=== PATIENT | female | born 2005 | race Caucasian/White ===

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

== ENCOUNTER 2025-05-09 17:10 | Emergency (ER) | payer MEDICAID, SELFPAY ==
--- NOTE | ~2025-05-09 | XR_ITS ---
CLINICAL HISTORY: chest pain 2 view chest x-ray Comparison: None provided Findings: Heart size is normal. No consolidation, pleural effusion or pneumothorax. No acute fracture. IMPRESSION: 1. No acute findings. This document has been electronically signed by: Teena Montiel MD on 05/09/2025 17:48:21
--- NOTE | 2025-05-09 17:13 | ECG_ITS ---
Test Reason : CHEST PAIN Blood Pressure : */* mmHG Vent. Rate : 71 BPM Atrial Rate : 71 BPM P-R Int : 136 ms QRS Dur : 78 ms QT Int : 378 ms P-R-T Axes : 73 83 58 degrees QTcB Int : 410 ms Normal sinus rhythm Normal ECG No previous ECGs available Referred By: Kacy Guzman Electronically Signed By: HOMAR DUARTE
[2025-05-09 17:19] VITALS: BP 118/69; PULSE 94; RESP 16; TEMP 36.8; O2SAT 98; BMI 16.9
--- NOTE | 2025-05-09 17:20 | ED.GENADULT ---
HPI - General Adult General Chief complaint: Chest Pain Stated complaint: cp Time Seen by Provider: 05/09/25 20:42 Source: patient Mode of arrival: ambulatory History of Present Illness ED Provider: HPI narrative: Patient's history of anxiety complaining of bilateral chest pain for last 1 week off and on no shortness a breath no cough no injury Related Data Home Medications ?Medication ?Instructions ?Recorded ?Confirmed aripiprazole 15 mg tablet 15 mg PO BEDTIME 06/10/21 12/28/21 clonidine HCl 0.1 mg tablet 0.1 mg PO BEDTIME 06/10/21 12/28/21 lithium carbonate 300 mg 300 mg PO BEDTIME 06/10/21 12/28/21 tablet,extended release melatonin 5 mg tablet 10 mg PO BEDTIME 06/10/21 12/28/21 Allergies Allergy/AdvReac Type Severity Reaction Status Date / Time No Known Allergies (No Known Allergy Verified 05/09/25 17:21 Allergies*) Review of Systems Review of Systems: Yes all other systems are reviewed and are negative PMFSH Past Medical History Medical History Anxiety Depression Social History Social History Alcohol intake: never Patient Tobacco Use Status: Never used Tobacco Substance Use Type: Marijuana Advance Directives: No Advance Directives Information Provided: No Do you have a plan to hurt others: No Plan Physical Exam ED Vital Signs: BMI result Body Mass Index 16.9 Appearance: Alert. Oriented X3. No acute distress. Eyes: no pallor or icterus ENT: Pharynx normal Oral Mucosa moist tympanic membrane intact no erythema, Neck: Normal inspection. Neck supple. CVS: Normal heart rate and rhythm. Pulses normal. Diffuse chest wall tenderness Respiratory: No respiratory distress. Equal air entry bilateral, no wheezing/rales/rhonchi Abd: soft, not tender Skin: Skin warm and dry. Normal skin color. Normal skin turgor. Extremities: No lower extremity edema, no calf tenderness Neuro: Oriented X 3. Course Course Course Narrative: This is a rapid medical exam performed by Rosamaria Guzman NP: Additional HPI, ROS, PE not included below will be deferred to primary provider. Patient is a 19-year-old female presenting with midsternal and L sided chest pain x 1 month. Under left breast on left side. Associated occasional dyspnea. Plan: EKG, labs, CXR Medications Administered Discontinued Medications Generic Name Dose Route Start Last Admin Trade Name Ava PRN Reason Stop Dose Admin Ibuprofen 400 mg 05/09/25 20:47 05/09/25 20:52 Ibuprofen 400 Mg Tablet PO 05/09/25 20:48 400 mg ONCE ONE Administration Medical Decision Making Medical Decision Making [facility] Narrative: Patient has atypical chronic chest pain with anxiety likely musculoskeletal pain discharge patient home on ibuprofen as needed Lab Data [facility] Lab Attestation statement: I reviewed the patient's lab results. 05/09/25 17:40 05/09/25 17:40 Labs: Lab Results 05/09/25 Range/Units 17:40 WBC 7.0 (4.8-10.8) X10*3/uL RBC 4.48 (4.20-5.50) X10*6/uL Hgb 12.0 (12.0-16.0) g/dl Hct 36.9 L (37.0-47.0) % MCV 82.4 (80.0-98.0) fL MCH 26.8 L (27.0-33.0) pg MCHC 32.5 (31.0-35.0) g/dl RDW 14.3 (11.0-16.0) % Plt Count 223 (160-400) X10*3/uL MPV 9.2 L (9.4-12.3) fL Immature Gran % (Auto) 0.1 (0.0-0.4) % Neut % (Auto) 47.4 (45-73) % Lymph % (Auto) 43.6 H (20-40) % [place] % (Auto) 6.0 (2-11) % Eos % (Auto) 2.2 (0-4) % Baso % (Auto) 0.7 (0-2) % Lymph # (Auto) 3.0 (1.2-4.9) X10*3/uL [place] # (Auto) 0.4 (0.1-1.2) X10*3/uL Eos # (Auto) 0.2 (0.0-0.4) X10*3/uL Baso # (Auto) 0.1 (0.0-0.2) X10*3/uL Abs Immat Gran (auto) 0.01 (0.00-0.03) X10*3/uL Absolute Neuts (auto) 3.3 (2.0-8.3) x10*3/uL Absolute Nucleated RBC 0.000 (0.0-0.012) X10*3/uL Nucleated RBC % (auto) 0.0 (0.0-0.2) /100WBC Sodium 138 (135-145) mmol/L Potassium 3.4 (3.3-5.1) mmol/L Chloride 108 (96-108) mmol/L Carbon Dioxide 24 (22-29) mmol/L Anion Gap 9 L (12-20) BUN 12 (9-16) mg/dL Creatinine 1.02 (0.5-1.4) mg/dL Estim Creat Clear Calc 64.7 Estimated GFR > 60 Random Glucose 119 H (60-115) mg/dL Calcium 8.9 (8.4-10.2) mg/dL Total Bilirubin 1.0 (0.0-1.0) mg/dL AST 23 (5-31) U/L ALT 15 (0-31) U/L Alkaline Phosphatase 80 (39-117) U/L Troponin I High Sens < 2.7 (<3.5-17.0) ng/L Total Protein 7.6 (6.5-8.0) g/dL Albumin 4.7 (3.5-5.0) g/dL Beta HCG, Quant < 2 mIU/mL Independent Interpretation I performed an independent interpretation of an: EKG Interpretation: Normal sinus rhythm heart rate 71 beats per minute normal interval normal axis no acute STT wave changes no acute ischemia Discharge Plan Discharge Clinical Impression: Atypical chest pain Patient Disposition: Home, Self-Care Instructions: Chest Wall Pain (ED) Additional Instructions: Your chest pain is not from the heart likely musculoskeletal take Tylenol /ibuprofen for pain as needed Prescriptions: No Action clonidine HCl 0.1 mg tablet 0.1 mg PO BEDTIME Patient Comments: PER PATIENT'S MOTHER, ONLY TAKES AT NIGHT lithium carbonate 300 mg tablet extended release 300 mg PO BEDTIME Patient Comments: PER PATIENT'S MOTHER, ONLY TAKES AT NIGHT aripiprazole 15 mg tablet 15 mg PO BEDTIME melatonin 5 mg tablet 10 mg PO BEDTIME Patient Comments: PER PATIENT'S MOTHER, ONLY TAKES AT NIGHT Stand Alone Forms: Work/School Release Interventions: ED Discharge Assessment Last Done: 05/09/25 20:57 Discharge Date/Time: 05/09/25 20:58 Print Language: Malaysian
[2025-05-09 17:44] LABS: MANUAL DIFF FLAG NO
[2025-05-09 17:45] LABS: Hematocrit 36.9 % (37.0-47.0); Hemoglobin 12.0 g/dl (12.0-16.0); Imm Gran Abs Auto 0.01 X10*3/uL (0.00-0.03); Imm Gran Pct Auto 0.1 % (0.0-0.4); Lymphocytes Absolute Auto 3.0 X10*3/uL (1.2-4.9); Mean Corpuscular HGB Conc 32.5 g/dl (31.0-35.0); Mean Corpuscular Hemoglobin 26.8 pg (27.0-33.0); Mean Corpuscular Volume 82.4 fL (80.0-98.0); NRBC Abs Auto 0.000 X10*3/uL (0.0-0.012); NRBC Pct Auto 0.0 /100WBC (0.0-0.2); Platelet Count 223 X10*3/uL (160-400); Red Blood Count 4.48 X10*6/uL (4.20-5.50); White Blood Count 7.0 X10*3/uL (4.8-10.8)
[2025-05-09 18:11] LABS: Alanine Aminotransferase 15 U/L (0-31); Albumin Level 4.7 g/dL (3.5-5.0); Alkaline Phosphatase 80 U/L (39-117); Anion Gap 9 (12-20); Aspartate Amino Transferase 23 U/L (5-31); Blood Urea Nitrogen 12 mg/dL (9-16); Calcium 8.9 mg/dL (8.4-10.2); Carbon Dioxide 24 mmol/L (22-29); Chloride 108 mmol/L (96-108); Creatinine Clr Calc Pharmacy 64.7; Estimated Glomerular Filt Rate > 60; Potassium 3.4 mmol/L (3.3-5.1); Sodium 138 mmol/L (135-145); Total Protein 7.6 g/dL (6.5-8.0)
[2025-05-09 18:14] LABS: Troponin-I High Sensitivity < 2.7 ng/L (<3.5-17.0)
[2025-05-09 19:40] VITALS: BP 98/58; PULSE 69; RESP 16; TEMP 36.6; O2SAT 99
[2025-05-09 20:00] VITALS: BP 99/59; PULSE 66; RESP 18; TEMP 36.8; O2SAT 100
[2025-05-09 20:57] VITALS: BP 99/59; PULSE 66; RESP 18; TEMP 36.8; O2SAT 100
== END 2025-05-09 20:58 | disposition home or self-care (01) ==
PROVIDERS: Registered Nurse Emergency; Emergency Provider Internal Medicine
DX: R07.89 Other chest pain (principal); F41.9 Anxiety disorder, unspecified; M79.10 Myalgia, unspecified site; Z79.899 Other long term (current) drug therapy
CPT/HCPCS: 36415; 71046; 80053; 84484; 84702; 85025; 93005; 99283; 99285

== ENCOUNTER → 2025-05-09 17:13 | Outpatient (BNV) | payer MEDICAID, SELFPAY | PROVIDERS: Emergency Provider Internal Medicine; Visit Provider Internal Medicine | DX: R07.9 Chest pain, unspecified (principal) | CPT/HCPCS: 93010 ==

== ENCOUNTER → 2025-05-09 17:22 | Outpatient (BNV) | payer MEDICAID, SELFPAY | PROVIDERS: Visit Provider Specialist | DX: R07.89 Other chest pain (principal) | CPT/HCPCS: 71046 ==

== ENCOUNTER 2025-06-26 11:24 | Outpatient (REF) | payer MEDICAID, SELFPAY ==
[2025-06-26 13:20] LABS: MANUAL DIFF FLAG NO
[2025-06-26 13:27] LABS: Hematocrit 36.6 % (37.0-47.0); Hemoglobin 11.7 g/dl (12.0-16.0); Imm Gran Abs Auto 0.01 X10*3/uL (0.00-0.03); Imm Gran Pct Auto 0.1 % (0.0-0.4); Lymphocytes Absolute Auto 2.3 X10*3/uL (1.2-4.9); Mean Corpuscular HGB Conc 32.0 g/dl (31.0-35.0); Mean Corpuscular Hemoglobin 26.3 pg (27.0-33.0); Mean Corpuscular Volume 82.2 fL (80.0-98.0); NRBC Abs Auto 0.000 X10*3/uL (0.0-0.012); NRBC Pct Auto 0.0 /100WBC (0.0-0.2); Platelet Count 229 X10*3/uL (160-400); Red Blood Count 4.45 X10*6/uL (4.20-5.50); White Blood Count 7.0 X10*3/uL (4.8-10.8)
[2025-06-26 14:25] LABS: Alanine Aminotransferase 16 U/L (0-31); Albumin Level 4.6 g/dL (3.5-5.0); Alkaline Phosphatase 66 U/L (39-117); Anion Gap 12 (12-20); Aspartate Amino Transferase 26 U/L (5-31); Blood Urea Nitrogen 10 mg/dL (9-16); Calcium 8.9 mg/dL (8.4-10.2); Carbon Dioxide 24 mmol/L (22-29); Chloride 108 mmol/L (96-108); Cholesterol 161 mg/dL (<200); Estimated Glomerular Filt Rate > 60; HDL Cholesterol 60 mg/dL (>40); Potassium 3.7 mmol/L (3.3-5.1); Sodium 140 mmol/L (135-145); Total Protein 7.3 g/dL (6.5-8.0); Triglycerides 49 mg/dL (<150)
== END 2025-06-26 11:25 | disposition home or self-care (01) ==
LOC: HO.HHCL 11:24
PROVIDERS: Visit Provider Registered Nurse Psychiatric/Mental Health
DX: Z79.899 Other long term (current) drug therapy (principal)
CPT/HCPCS: 36415; 80053; 80061; 82248; 84443; 85025

== ENCOUNTER 2025-06-27 14:59 | Outpatient (REF) | payer MEDICAID, SELFPAY ==
--- OUTSIDE RECORDS SUMMARY | 2025-06-27 14:15 | XMS_ITS | Encounter Summary ---
Author Organization [employer] Address [address] [facility] [facility] 7[address] [place] [address] Care Team Providers Care Ripsaw Grader Name Role Phone Carmelita Lanza MD Primary Care Provider [phone] Encounter Details Date Type Department Care Team ([facility] st Contact Info) Description 06/27/2025 2:15 PM EDT Office Visit [facility] MED & PEDS [address] [place] [address] Carmelita Lanza MD [address] [place] [address] Excessive weight loss (Primary Dx); Mixed anxiety and depressive disorder Social History Tobacco Use Types Packs/Day Years [...] Sign Reading Time Taken Comments Blood Pressure 110/60 06/27/2025 2:18 PM EDT Pulse 82 06/27/2025 2:18 PM EDT Temperature 36.5 C (97.7 F) 06/27/2025 2:18 PM EDT Respiratory Rate 20 06/27/2025 2:18 PM EDT Oxygen Saturation 98% 06/27/2025 2:18 PM EDT Inhaled Oxygen Concentration - - Weight 44.5 kg (98 lb 3.2 oz) 06/27/2025 2:18 PM EDT Height 165.1 cm (5' 5 ) 06/27/2025 2:18 PM EDT Body Mass Index 16.34 06/27/2025 2:18 PM EDT documented in this encounter Progress Notes * Carmelita Lanza MD - 06/27/2025 2:15 PM EDT Subjective Patient ID: Rashida Espinosa is a 19 y.o. female who presents for weight loss. Patient is a 19-year-old female here for inability to gain weight. Patient has always been thinner and states parents and siblings are as well. Her previous weight at last visit was 105 pounds and today she is 98 pounds despite trying to have 3 meals a day and snacks. She is very busy between [employer] school and working at [employer] a lot. Admits to drinking 3-4 red bowls daily to keep up her energy level. Denies any red flag symptoms. She had blood work drawn yesterday by psych which were reviewed and were within normal limits except for a hemoglobin of 11.7. Review of Systems Constitutional: Positive for unexpected [...] The patient is not nervous/anxious. Objective BP 110/60 Pulse 82 Temp 97.7 ??F (36.5 ??C) (Oral) Resp 20 Ht 5' 5 (1.651 m) Wt 98 lb 3.2 oz (44.5 kg) SpO2 98% BMI 16.34 kg/m?? Physical Exam Constitutional: General: She is [...] Normal pulses. Heart sounds: Normal heart sounds. Pulmonary: Effort: Pulmonary effort is normal. No respiratory distress. Breath sounds: Normal breath sounds. Abdominal: Palpations: Abdomen is soft. Musculoskeletal: General: Normal range of motion. Cervical back: Normal range of motion. Lymphadenopathy: Cervical: No cervical adenopathy. Skin: General: Skin is warm. Capillary Refill: [...] for this visit: Excessive weight loss Comments: Patient is trying to gain weight by having 3 meals a day as well as snacks. Very busy with work andschool. Advised to stop drinking red bull as it worsens her anxiety and stimulates her metabolism even more. Prescription for boost shakes given today. Trial of Periactin as well given. Denies depression symptoms and sees therapist and psych provider. Labs from yesterday reviewed and within normal limits. Will add a chest x-ray, sed rate and CRP as part of the workup for underweight. Follow-up with me given. She also has negative STD screening done recently. Orders: - C-reactive Protein; Future - Vitamin B12/Folate, Serum Panel; Future - Sed Rate by Modified Westergren; Future - Nutritional Supplements (Boost Original) liquid; Take 1 Bottle by mouth 2 times daily. - XR Chest 2 Views; Future Mixed anxiety and depressive disorder Comments: Patient sees therapist as well as psych provider through [facility]. Mood seems stable. Drinking lots of red bull daily. Advised to taper and stop eventually as it increases anxiety and probably increases her metabolism which worsens her weight loss. Advised to switch to another healthier drink or coffee. Other orders - cyproheptadine (Periactin) 4 MG tablet; Take 1 tablet (4 mg) by mouth at bedtime. documented in this encounter Plan of Treatment Upcoming Encounters Date Type Department Care Team ([facility] st Contact Info) Description 08/27/2025 9:45 AM EST Office Visit [facility] MED & PEDS [address] [place] [address] Carmelita Lanza MD [address] [place] [address] Scheduled Orders Name Type Priority Associated Diagnoses Orde r Schedule C-reactive Protein Lab Routine Excessive weight loss Expected: 06/27/2025 (Approximate), Expires: 06/27/2026 Vitamin B12/Folate, Serum Panel Lab Routine Excessive weight loss Expected: 06/27/2025, Expires: 06/27/2026 Sed Rate by Modified Westergren Lab Routine Excessive weight loss Expected: 06/27/2025, Expires: 06/27/2026 XR Chest 2 Views Imaging Routine Excessive weight loss Expected: 06/27/2025, Expires: 06/27/2026 documented as of this encounter Visit Diagnoses Diagnosis Excessive weight loss- Primary Mixed anxiety and depressive disorder Dysthymic disorder documented in this encounter Additional Health Concerns Assessment Noted Time PHQ-9 Depression Total Score: 6 12/11/19 25 9:21 AM EST documented as of this encounter Care Teams Ripsaw Grader Relationship Specialty Start Date End Date Carmelita Lanza MD [address] [place] [address] PCP - General Internal Medicine 12/20/23 Viv Gunderson Hi TeacherFront Window Cashier 10/11/24 documented as of this encounter
--- OUTSIDE RECORDS SUMMARY | 2025-06-27 16:04 | XMS_ITS | Encounter Summary ---
Author Organization [employer] Address [address] [place] [address] [address] [place] [address] Care Team Providers Care Underwriting Director Name Role Phone Carmelita Lanza MD Primary Care Provider [phone] Reason for Visit * Reason Onset Date Comments rs cancelled appt 02/20/2025 Encounter Details Date Type Department Care Team ([facility] st Contact Info) Description 02/20/2025 Telephone [facility] ADULT DENTAL [address] [place], [place] [phone] Giovanni Sun [address] [place] [address] rs cancelled appt Social History Tobacco Use Types Packs/Day Years [...] AM EDT documented as of this encounter Miscellaneous Notes * Telephone Encounter - Delores Brunner - 02/20/2025 12:20 PM EDT Patient would like to rescheduled cancelled appt on 01/23. It was cancelled a day prior to. Please reach out to patient for rescheduling DR documented in this encounter Plan of Treatment Upcoming Encounters Date Type Department Care Team (Late st Contact Info) Description 08/27/2025 9:45 AM EST Office Visit [facility] MED & PEDS [address] [place] [address] Carmelita Lanza MD [address] [place] [address] documented as of this encounter Visit Diagnoses Not on filedocumented in this encounter Additional Health Concerns Assessment Noted Time PHQ-9 Depression Total Score: 6 12/11/19 25 9:21 AM EST documented as of this encounter Care Teams Underwriting Director Relationship Specialty Start Date End Date Carmelita Lanza MD [address] [place] [address] PCP - General Internal Medicine 12/20/23 Viv Gunderson Dynamo TenderTruck Car And Bus Cleaner 10/11/24 documented as of this encounter
--- OUTSIDE RECORDS SUMMARY | 2025-06-27 16:04 | XMS_ITS | Encounter Summary ---
Author Organization [employer] Address [address] [place] [address] 7t [place] [address] Care Team Providers Care Warehouse Supervisor 3Rd Shift Name Role Phone Carmelita Lanza MD Primary Care Provider [phone] Reason for Visit * Reason Onset Date Comments cx appt no insurance 01/22/2025 Encounter Details Date Type Department Care Team ([facility] st Contact Info) Description 01/22/2025 Telephone [facility] ADULT DENTAL [address] [place], [place] [phone] Giovanni Sun [address] [place] [address] cx appt no insurance Social History Tobacco Use Types Packs/Day Years [...] * Telephone Encounter - Delores Brunner - 01/22/2025 12:11 PM EDT Patient [employer] is inactive. Patient was offered to speak with Chrissie however patient was on the way to [employer] an opted to speak with MH office directly. Patiet informed to contact office when MH insurance is squared away for rescheduling pending availability DR documented in this encounter Plan of Treatment Upcoming Encounters Date Type Department Care Team ([facility] st Contact Info) Description 08/27/2025 9:45 AM EST Office Visit [facility] MED & PEDS [address] [place] [address] Carmelita Lanza MD [address] [place] [address] documented as of this encounter Visit Diagnoses Not on filedocumented in this encounter Additional Health Concerns Assessment Noted Time PHQ-9 Depression Total Score: 6 12/11/19 25 9:21 AM EST documented as of this encounter Care Teams Warehouse Supervisor 3Rd Shift Relationship Specialty Start Date End Date Carmelita Lanza MD [address] [place] [phone] PCP - General Internal Medicine 12/20/23 Viv Gunderson Brush StainerMedical Front Desk Coordinator 10/11/24 documented as of this encounter
--- OUTSIDE RECORDS SUMMARY | 2025-06-27 16:04 | XMS_ITS | Encounter Summary ---
Author Organization [employer] Address [address] [facility] 7t [place] [address] Care Team Providers Care Senior Editor Name Role Phone Carmelita Lanza MD Primary Care Provider [phone] Encounter Details Date Type Department Care Team (Late st Contact Info) Description 06/26/2025 Orders Only GENERIC EXTERNAL DATA DEPARTMENT Provider, Generic External Data Social History Tobacco Use Types Packs/Day Years [...] Upcoming Encounters Date Type Department Care Team ([facility] st Contact Info) Description 08/27/2025 9:45 AM EST Office Visit [facility] MED & PEDS [address] [place], [place] [phone] Carmelita Lanza MD [address] [place], [place] [phone] documented as of this encounter Procedures Procedure Name Priority Date/Time Associated Diagnosis Comments TSH W/REFLEX TO FT4 Routine 06/26/2025 1 1:35 AM EDT CBC WITH AUTO DIFFERENTIAL Routine 06/26/2025 11:35 AM EDT HEPATIC FUNCTION PANEL Routine 11:35 AM EDT LIPID PANEL, STANDARD Routine 06/26/2025 11:35 AM EDT COMPREHENSIVE METABOLIC PANEL Routine 06/26/2025 11:35 AM EDT documented in this encounter Results * TSH with Reflex to Free T4 (06/26/2025 11:35 AM EDT) TSH reflex Free T4 0.57 0.32 - 4.0 uIU/mL [facility] 06/26/2025 11:3 5 AM EDT 06/26/2025 1:21 PM EDT Generic External Data Provider LAB BLOOD ORDERAB LES Final Result Performing Organization Address [facility] Co de Phone Number [facility] [address] [place] [phone] * Lipid Panel, Standard (06/26/2025 11:35 AM EDT) Triglycerides 49 <150 mg/dL [facility] Comment:Desirable Triglyceri de: less than 90 mg/dLBorderline High Triglyceride: 90-129 mg/dLHigh Triglyceride: greater than 130 mg/dL Cholesterol 161 <200 mg/dL [facility] Comment:Desirable Cholestero l: less than 170 mg/dLBorderline High Cholesterol: 170-199 mg/dLHigh Cholesterol: greater than 200 mg/dL LDL Cholesterol Calculated 92 <100 mg/dL [facility] Comment:Desirable LDL: less than 110 mg/dLBorderline LDL: 110-129 mg/dLHigh LDL: greater than or equal to 130 mg/dL HDL Cholesterol 60 >40 mg/dL [facility] Comment:Desirable HDL: great er than 45 mg/dLBorderline HDL: 40-45 mg/dLLow HDL: less than 40 mg/dL Note: This HDL assay may give artificially low results in patients with liver disease. 06/26/2025 11:3 5 AM EDT 06/26/2025 1:21 PM EDT Generic External Data Provider LAB BLOOD ORDERAB LES Final Result Performing Organization Address [facility] Co de Phone Number [facility] [address] [place] [phone] * (ABNORMAL) Hepatic Function Panel (06/26/2025 11:35 AM EDT) Bilirubin, Direct 0.6(H) 0.0 - 0.5 mg/dL [facility] Comment:Slight Icterus. 06/26/2025 11:3 5 AM EDT 06/26/2025 1:21 PM EDT us Generic External Data Provider LAB BLOOD ORDERAB LES Final Result Performing Organization Address City/[facility]/ZIP Co de Phone Number [facility] [address] [place] [phone] * (ABNORMAL) Comprehensive Metabolic Panel (06/26/2025 11:35 AM EDT) Sodium 140 135 - 145 mmol/L [facility] Potassium 3.7 3.3 - 5.1 mmol/L [facility] Chloride 108 96 - 108 mmol/L [facility] Carbon Dioxide 24 22 - 29 mmol/L [facility] Anion Gap 12 12 - 20 [facility] Urea Nitrogen (BUN) 10 9 - 16 mg/dL [facility] Creatinine, Serum 0.89 0.5 - 1.4 mg/dL [facility] Estimated Glomerular Filt Rate >60 [facility] Comment:Chronic Kidney Disea se: Estimated GFR < 60 mL/min/1.85h1Ipowhk Kidney Disease: Estimated GFR < 15 mL/min/1.73m2 Glucose 71 60 - 115 mg/dL [facility] Calcium 8.9 8.4 - 10.2 mg/dL [facility] Bilirubin, Total 1.8(H) 0.0 - 1.0 mg/dL [facility] Comment:Slight Icterus. Aspartate Amino Transferase 26 5 - 31 U/L [facility] Alanine Aminotransferase 16 0 - 31 U/L [facility] Total Protein 7.3 6.5 - 8.0 g/dL [facility] Albumin Level 4.6 3.5 - 5.0 g/dL [facility] Alkaline Phosphatase 66 39 - 117 U/L [facility] 06/26/2025 11:3 5 AM EDT 06/26/2025 1:21 PM EDT us Generic External Data Provider LAB BLOOD ORDERAB LES Final Result Performing Organization Address City/[facility]/ZIP Co de Phone Number [facility] [address] [place] [phone] * (ABNORMAL) CBC auto differential (06/26/2025 11:35 AM EDT) White Blood Count 7.0 4.8 - 10.8 X10*3/uL [facility] Red Blood Count 4.45 4.20 - 5.50 X10*6/uL [facility] Hemoglobin 11.7(L) 12.0 - 16.0 g/dl [facility] Hematocrit 36.6(L) 37.0 - 47.0 % [facility] Mean Corpuscular Volume 82.2 80.0 - 98.0 fL [facility] Mean Corpuscular Hemoglobin 26.3(L) 27.0 - 33.0 pg [facility] Mean Corpuscular HGB Conc 32.0 31.0 - 35.0 g/dl [facility] Red Cell Distribution Width 14.6 11.0 - 16.0 % [facility] Platelet Count 229 160 - 400 X10*3/uL [facility] Mean Platelet Volume 10.4 9.4 - 12.3 fL [facility] Neutrophils Percent Auto 58.0 45 - 73 % [facility] Imm Gran Pct Auto 0.1 0.0 - 0.4 % [facility] Lymphocytes Percent Auto 32.8 20 - 40 % [facility] Monocytes Percent Auto 6.6 2 - 11 % [facility] Eosinophils Percent Auto 1.9 0 - 4 % [facility] Basophils Percent Auto 0.6 0 - 2 % [facility] NRBC Pct Auto 0.0 0.0 - 0.2 /100WBC [facility] Neutrophils Absolute Auto 4.0 2.0 - 8.3 x10*3/uL [facility] Imm Gran Abs Auto 0.01 0.00 - 0.03 X10*3/uL [facility] Lymphocytes Absolute Auto 2.3 1.2 - 4.9 X10*3/uL [facility] Monocytes Absolute Auto 0.5 0.1 - 1.2 X10*3/uL [facility] Eosinophils Absolute Auto 0.1 0.0 - 0.4 X10*3/uL [facility] Basophils Absolute Auto 0.0 0.0 - 0.2 X10*3/uL [facility] NRBC Abs Auto 0.000 0.0 - 0.012 X10*3/uL [facility] 06/26/2025 11:3 5 AM EDT 06/26/2025 1:16 PM EDT us Generic External Data Provider LAB BLOOD ORDERAB LES Final Result [facility] [address] [place] [phone] documented in this encounter Visit Diagnoses Not on filedocumented in this encounter Additional Health Concerns Assessment Noted Time PHQ-9 Depression Total Score: 6 12/11/19 25 9:21 AM EST documented as of this encounter Care Teams Senior Editor Relationship Specialty Start Date End Date Carmelita Lanza MD [address] [place] [phone] PCP - General Internal Medicine 12/20/23 Viv Gunderson Overlock HemmerSupervisor Body Assembly 10/11/24 documented as of this encounter
--- OUTSIDE RECORDS SUMMARY | 2025-06-27 16:04 | XMS_ITS | Encounter Summary ---
Author Organization [employer] Address [address] [facility] 7t [place] [address] Care Team Providers Care Production Repairer Name Role Phone Carmelita Lanza MD Primary Care Provider [phone] Encounter Details Date Type Department Care Team (Latest Contact Info) Description 06/27/2025 Travel Social History Tobacco Use Types Packs/Day [...] Upcoming Encounters Date Type Department Care Team ([facility] st Contact Info) Description 08/27/2025 9:45 AM EST Office Visit [facility]EDS [address] [place] [address] Carmelita Lanza MD [address] [place] [address] documented as of this encounter Visit Diagnoses Not on filedocumented in this encounter Additional Health Concerns Assessment Noted Time PHQ-9 Depression Total Score: 6 12/11/19 25 9:21 AM EST documented as of this encounter Care Teams Production Repairer Relationship Specialty Start Date End Date Carmelita Lanza MD [address] [place] [address] PCP - General Internal Medicine 12/20/23 Viv Gunderson Dock SupervisorFitness Specialist 10/11/24 documented as of this encounter
--- OUTSIDE RECORDS SUMMARY | 2025-06-27 16:04 | XMS_ITS | Clinical Summary ---
Author Organization [employer] Address [address] [facility] [address] [place] [address] Care Team Providers Care Child Support Investigator Name Role Phone Carmelita Lanza MD Primary Care Provider [phone] Allergies No known active allergies Medications * This document contains information received from the source organization and may not represent a complete record from that organization. Sod Fluoride-Potassi um Nitrate 1.1-5 % paste Please use pea size to brush your teeth twice daily. Spit after brushing. Do not rinse. 112 g 1 4 Active Multiple Vitamins-Calcium (Essential One Daily Multivit) tablet Take 1 tab orally daily 90 tablet 3 5 Active ibuprofen 600 MG tablet Take 1 tablet (600 mg) by mouth every 6 (six) hours if needed for mild pain for up to 20 doses. 20 tablet 5 Active emtricitabine-te nofovir DF (Truvada) 200-300 MG tabletIndication s:On pre-exposure prophylaxis for HIV Take 1 tablet by mouth Once per day. 30 tablet 11 5 04/15/20 26 Active Nutritional Supplements (Boost Original) liquidIndication s:Excessive weight loss Take 1 Bottle by mouth 2 times daily. 5660 mL 5 Active cyproheptadine (Periactin) 4 MG tablet Take 1 tablet (4 mg) by mouth at bedtime. 30 tablet 2 5 09/25/20 25 Active medroxyPROGESTER one (Depo-Provera) 150 MG/ML injection Inject 1 mL (150 mg) into the muscle every 3 (three) months. 1 mL 3 5 06/27/20 25 Discontinu ed(Side effects) Active Problems Problem Noted Date Diagnosed Date [...] 12 months) . Rashida is engaged in MH services with [facility] for individual therapy. Discussed psychopharmacology referral within [facility]. Allergy 04/04/2023 Assessment & Plan (04/04/2023 4:40 PM EDT): Eyes and runny nose. Will try zyrtec and alaway Disruptive mood dysregulation disorder 8 Excessive weight loss 03/27/2012 Insomnia 03/27/2012 Mental health problem 03/27/2012 Encounters Date Type Department Care Team Description 06/27/2025 2:15 PM EDT Office Visit [facility] [address] [place] [address] Carmelita Lanza MD Excessive weight loss (Primary Dx); Mixed anxiety and depressive disorder 06/27/2025 Travel 06/26/2025 Orders Only GENERIC EXTERNAL DATA DEPARTMENT Provider, Generic External Data 06/26/[address] [address] Carmelita Lanza MD Nurse Triage 04/19/2025 Orders Only [facility] [address] [place] [address] Berenice Grullon RN 04/15/2025 Orders Only [facility] [address] [place], [place] [phone] Carmelita Lanza MD 04/15/2025 Orders Only [address] [address] Muriel Patel, FARTUN On pre-exposure prophylaxis for HIV (Primary Dx); Routine screening for STI (sexually transmitted infection) 04/10/2025 Telephone [facility] [address] [place] [address] Kelly Quiroz, RN Care Coordination from Last 3 Months Immunizations Immunization Administration Dates Next Due DTaP 06/08/2010, 7,06/23/2006,03/28,2005 HPV 9-Valent 02/01/2019,10/03/2017 Hep A, ped/adol, 2 dose 11/14/2013,12/23/2006 Hep B, Adolescent or Pediatric 06/23/2006,2005,2005 Hib (HbOC) 06/23/2009, 7,03/28/2006,12/24 IPV 06/08/2010, 6,03/28/2006,12/24 Influenza injectable [...] Mass Index 16.34 06/27/2025 2:18 PM EDT Plan of Treatment Upcoming Encounters Date Type Department Care Team ([facility] st Contact Info) Description 08/27/2025 9:45 AM EST Office Visit [facility] [address] [place] [address] Carmelita Lanza MD [address] [place] [address] Health Maintenance Due Date Last Done Comments Family Planning (PISQ) 2020 Meningococcal B Vaccine (1 of 2 - Standard) 2021 Dental X-Ray: Bitewings 01/03/2025 01/03/20 24, 10/27/2021, 11/16/2019, Additional history exists Fluoride Varnish 01/24/2025 07/26/2024, 01/2022, 11/16/2019, Additional history exists Dental Oral Exam 01/25/2025 07/26/2024, 01/2022, 11/16/2019, Additional history exists Dental Prophylaxis 01/25/2025 07/26/2024, 0 01/17/2024, 10/27/2021, Additional history exists COVID-19 Vaccine ( season) 2025 04/07/2021, 03/17/2021 Influenza Vaccine (#1) 2025 , 01/11/2022, 11/06/2019, Additional history exists Alcohol/Substance Use Screening 12/11/2025 12/11/2024 Depression Screening 12/11/2025 12/11/2024, 12/11/19 25 Disability Screening 12/11/2025 12/11/2024 SDOH Screening 12/11/2025 12/11/2024 Chlamydia and Gonorrhea Screening 04/09/2026 04/09/2025, 04/09/2025, 12/11/2024, Additional history exists Tobacco Screening 06/27/2026 06/27/2025 Dental X-Ray: Full Mouth 12/28/2027 025, 01/03/2024, 09/08/2011 DTaP/Tdap/Td Vaccines (8 - Td or Tdap) 10/07/2031 10/07/2021, 10/03/2017, 06/08/2010, Additional history exists Zoster Vaccines (1 of 2) 2055 RSV Patients and Patients Aged 60 years or older (1 - 1-dose 75+ series) 2080 Hepatitis B Vaccines Completed 06/23/2006, 2005, 2005 Pneumococcal Vaccine: Pediatrics (0 to 5 Years) and At-Risk Patients (6 to 49) Years Aged Out 09/23/2006, 2005 No longer eligibl [...] Vaccine Completed 01/11/2022, 017 HIV Screening Completed 04/09/2025, 11/24, 03/02/2023 Hepatitis C Screening Completed 04/09/2025, 025 RSV under 20 months Aged Out No longe r eligible based on patient's age to complete this topic Rotavirus Vaccines Aged Out No longer eligible based on patient's age to complete this topic Procedures Procedure Name Priority Date/Time Associated Diagnosis Comments TSH W/REFLEX TO FT4 Routine 06/26/2025 1 1:35 AM EDT LIPID PANEL, STANDARD Routine 06/26/2025 11:35 AM EDT HEPATIC FUNCTION PANEL Routine 11:35 AM EDT COMPREHENSIVE METABOLIC PANEL Routine 06/26/2025 11:35 AM EDT CBC WITH AUTO DIFFERENTIAL Routine 06/26/2025 11:35 AM EDT HIV ANTIBODY/ANTIGEN ([place] [facility]) Routine 04/09/2025 HEPATITIS C ANTIBODY ([place] D[facility]) Routine 04/09/2025 SYPHILIS ABS ([place] DPH) Routine 04/09/2025 CHLAMYDIA/GONORRHEA THROAT SWAB ([place] DPH) Routine 04/09/2025 CHLAMYDIA/GONORRHEA VAGINAL SWAB ([place] DPH) Routine 04/09/2025 PANORAMIC RADIOGRAPHIC IMAGE Routine 12/26/2024 8:00 AM EST PROPHYLAXIS - ADULT Routine 07/26/2024 1 0:00 AM EDT Dental caries Gingivitis PERIODIC ORAL EVALUATION - ESTABLISHED PATIENT Routine 07/26/2024 10:00 AM EDT Dental caries Gingivitis TOPICAL APPLICATION OF FLUORIDE VARNISH Routine 07/26/2024 10:00 AM EDT Dental caries Gingivitis INTRAORAL - COMPLETE SERIES OF RADIOGRAPHIC IMAGES Routine 01/03/2024 9:00 AM EDT from Last 3 Months or Most Recently Relevant to Health Maintenance Results * TSH with Reflex to Free T4 (06/26/2025 11:35 AM EDT) TSH reflex Free T4 0.57 0.32 - 4.0 uIU/mL [facility] 06/26/2025 11:3 5 AM EDT 06/26/2025 1:21 PM EDT us Generic External Data Provider LAB BLOOD ORDERAB LES Final Result [facility] [address] [place] [address] [phone] * (ABNORMAL) CBC auto differential (06/26/2025 11:35 AM EDT) White Blood Count 7.0 4.8 - 10.8 X10*3/uL [facility] Red Blood Count 4.45 4.20 - 5.50 X10*6/uL [facility] Hemoglobin 11.7(L) 12.0 - 16.0 g/dl [facility] Hematocrit 36.6(L) 37.0 - 47.0 % [facility] Mean Corpuscular Volume 82.2 80.0 - 98.0 fL [facility] Mean Corpuscular Hemoglobin 26.3(L) 27.0 - 33.0 pg [facility] Mean Corpuscular HGB Conc 32.0 31.0 - 35.0 g/dl [facility] Red Cell Distribution Width 14.6 11.0 - 16.0 % [facility] Platelet Count 229 160 - 400 X10*3/uL [facility] Mean Platelet Volume 10.4 9.4 - 12.3 fL [facility] Neutrophils Percent Auto 58.0 45 - 73 % [facility] Imm Gran Pct Auto 0.1 0.0 - 0.4 % [facility] Lymphocytes Percent Auto 32.8 20 - 40 % [facility] Monocytes Percent Auto 6.6 2 - 11 % [facility] Eosinophils Percent Auto 1.9 0 - 4 % [facility] Basophils Percent Auto 0.6 0 - 2 % [facility] NRBC Pct Auto 0.0 0.0 - 0.2 /100WBC [facility] Neutrophils Absolute Auto 4.0 2.0 - 8.3 x10*3/uL [facility] Imm Gran Abs Auto 0.01 0.00 - 0.03 X10*3/uL [facility] Lymphocytes Absolute Auto 2.3 1.2 - 4.9 X10*3/uL [facility] Monocytes Absolute Auto 0.5 0.1 - 1.2 X10*3/uL [facility] Eosinophils Absolute Auto 0.1 0.0 - 0.4 X10*3/uL [facility] Basophils Absolute Auto 0.0 0.0 - 0.2 X10*3/uL [facility] NRBC Abs Auto 0.000 0.0 - 0.012 X10*3/uL [facility] 06/26/2025 11:3 5 AM EDT 06/26/2025 1:16 PM EDT Generic External Data Provider LAB BLOOD ORDERAB LES Final Result Performing Organization Address [facility]/ZIP Co de Phone Number [facility] [address] [place] [phone] * (ABNORMAL) Hepatic Function Panel (06/26/2025 11:35 AM EDT) Bilirubin, Direct 0.6(H) 0.0 - 0.5 mg/dL [facility] Comment:Slight Icterus. 06/26/2025 11:3 5 AM EDT 06/26/2025 1:21 PM EDT Generic External Data Provider LAB BLOOD ORDERAB LES Final Result Performing Organization Address [facility]/ZIP Co de Phone Number [facility] [address] [place] [phone] * Lipid Panel, Standard (06/26/2025 11:35 AM EDT) Triglycerides 49 <150 mg/dL [facility] Comment:Desirable Triglyceri de: less than 90 mg/dLBorderline High Triglyceride: 90-129 mg/dLHigh Triglyceride: greater than 130 mg/dL Cholesterol 161 <200 mg/dL [facility] Comment:Desirable Cholestero l: less than 170 mg/dLBorderline High Cholesterol: 170-199 mg/dLHigh Cholesterol: greater than 200 mg/dL LDL Cholesterol Calculated 92 <100 mg/dL [facility] Comment:Desirable LDL: less than 110 mg/dLBorderline LDL: 110-129 mg/dLHigh LDL: greater than or equal to 130 mg/dL HDL Cholesterol 60 >40 mg/dL [facility] Comment:Desirable HDL: great er than 45 mg/dLBorderline HDL: 40-45 mg/dLLow HDL: less than 40 mg/dL Note: This HDL assay may give artificially low results in patients with liver disease. 06/26/2025 11:3 5 AM EDT 06/26/2025 1:21 PM EDT us Generic External Data Provider LAB BLOOD ORDERAB LES Final Result [facility] [address] [place] [phone] * (ABNORMAL) Comprehensive Metabolic Panel (06/26/2025 11:35 AM EDT) Sodium 140 135 - 145 mmol/L [facility] Potassium 3.7 3.3 - 5.1 mmol/L [facility] Chloride 108 96 - 108 mmol/L [facility] Carbon Dioxide 24 22 - 29 mmol/L [facility] Anion Gap 12 12 - 20 [facility] Urea Nitrogen (BUN) 10 9 - 16 mg/dL [facility] Creatinine, Serum 0.89 0.5 - 1.4 mg/dL [facility] Estimated Glomerular Filt Rate >60 [facility] Comment:Chronic Kidney Disea se: Estimated GFR < 60 mL/min/1.89p5Zezego Kidney Disease: Estimated GFR < 15 mL/min/1.73m2 Glucose 71 60 - 115 mg/dL [facility] Calcium 8.9 8.4 - 10.2 mg/dL [facility] Bilirubin, Total 1.8(H) 0.0 - 1.0 mg/dL [facility] Comment:Slight Icterus. Aspartate Amino Transferase 26 5 - 31 U/L [facility] Alanine Aminotransferase 16 0 - 31 U/L [facility] Total Protein 7.3 6.5 - 8.0 g/dL [facility] Albumin Level 4.6 3.5 - 5.0 g/dL [facility] Alkaline Phosphatase 66 39 - 117 U/L [facility] 06/26/2025 11:3 5 AM EDT 06/26/2025 1:21 PM EDT Generic External Data Provider LAB BLOOD ORDERAB LES Final Result [facility] [address] [facility] [place] [address] [phone] * Chlamydia/Gonorrhea Vaginal Swab ([place] [facility]) (04/09/2025) Chlamydia Vaginal Swab Negative Negative, Indeterminate, None Detected, Invalid, Specimen unsatisfactory for evaluation, Weakly Positive, 2+ Gonorrhea Vaginal Swab Negative Negative, Indeterminate, None Detected, Invalid, Specimen unsatisfactory for evaluation, Weakly Positive, 2+ Swab Vaginal structure / Unknown 04/09/2025 Historical Provider LAB MICROBIOLOGY - GENERA L ORDERABLES Final Result * Chlamydia/Gonorrhea Throat Swab ([place] DPH) (04/09/2025) Chlamydia Throat Swab Negative Gonorrhea Throat Swab Negative Swab 04/09/2025 Historical Provider LAB MICROBIOLOGY - GENERA L ORDERABLES Final Result * Syphilis Antibodies (DPH) (04/09/2025) Syphilis Abs Nonreactive Borderline, Nonreactive, Weakly Reactive, Inconclusive, Specimen unsatisfactory for evaluation Blood Venous blood specimen / Unknown 04/09/2025 Historical Provider LAB BLOOD ORDERABLES Michela l Result * Hepatitis C Antibody ([facility]) (04/09/2025) Hepatitis C Ab Nonreactive Blood 04/09/2025 Historical Provider LAB BLOOD ORDERABLES Michela l Result * HIV Ab/Ag ([facility]) (04/09/2025) HIV Ag/Ab Nonreactive Blood 04/09/2025 Historical Provider LAB BLOOD ORDERABLES Michela l Result from Last 3 Months Insurance [facility] * Guarantor: Yousif Espinosa Account Type Relation to Patient Date of Phone Billing Address Personal/Family Mother 1979 [address] [facility] [id number] [place] [address] [facility] MEDICA[facility] STAND ADULT Care Teams Child Support Investigator Relationship Specialty Start Date End Date Carmelita Lanza MD [address] [place] [phone] PCP - General Internal Medicine 12/20/23 Viv Gunderson [employer] WorkerIron Setter 10/11/24
--- OUTSIDE RECORDS SUMMARY | 2025-06-27 16:04 | XMS_ITS | Encounter Summary ---
Author Organization [employer] Address [address] [facility] [address] [place] [address] Care Team Providers Care Manager Basketball Name Role Phone Carmelita Lanza MD Primary Care Provider [phone] Reason for Visit * Reason Onset Date Comments Nurse Triage 06/26/2025 Encounter Details Date Type Department Care Team (Late st Contact Info) Description 06/26/2025 Telephone [facility] [address] [place] [address] Carmelita Lanza MD [address] [place] [address] Nurse Triage Social History Tobacco Use Types Packs/Day Years [...] encounter Miscellaneous Notes * Telephone Encounter - Ludivina Goel RN - 06/26/2025 2:29 PM EDT called pt to triage, spoke to pt. pt reports weight loss over several months and wants to get it checked out. pt states for the first time in her adult life is <100 pounds. pt states is usually around 105 and is not sure why she would be losing weight. pt states eats 1=2 times a day and is very active. pt denies illness symptoms, pain, vomiting, fevers, or other associated symptoms. advised to pt that she may not be meeting her daily calorie needs and advised home care: fluids, eat regularly 3 times a day, snack if needed at night, try supplement drink if not eating well, and call back in 1=2 weeks as needed. pt insistent on appt to check things out and get some labs done. given appt tomorrow with PCP at 2:15 for exam. pt understands and agrees with plan. insurance verified. Protocol Used: Weight Loss - Unintended (Adult) Protocol-Based Disposition: Home Care Positive Triage Question: * MILD unexplained weight loss (e.g., less than 5%; 1 to 5 lbs; 0.5 to 2 kg) * All higher-acuity triage questions were negative Care Advice Discussed: * Eat a Healthy Diet * Why Is Healthy Eating Important? * What Foods Are in a Healthy Diet? * How Much Protein Should Adults Eat? * Keep Track of Your Weight * Reasons To Call Back - You become worse * Telephone Encounter - Maira Perla - 06/26/2025 12:49 PM EDT Symptom: Weight Loss Outcome: Schedule an appointment to be seen within 24 hours Reason: Caller denied all higher acuity questions The caller accepted this outcome. Contact pt [phone] documented in this encounter Plan of Treatment Upcoming Encounters Date Type Department Care Team ([facility] st Contact Info) Description 08/27/2025 9:45 AM EST Office Visit [facility] [address] [place] [address] Carmelita Lanza MD [address] [place] [address] documented as of this encounter Visit Diagnoses Not on filedocumented in this encounter Additional Health Concerns Assessment Noted Time PHQ-9 Depression Total Score: 6 12/11/19 25 9:21 AM EST documented as of this encounter Care Teams Manager Basketball Relationship Specialty Start Date End Date Carmelita Lanza MD [address] [place] [address] PCP - General Internal Medicine 12/20/23 Viv Gunderson [employer] TeacherRefrigerator Car Icer 10/11/24 documented as of this encounter
[2025-06-27 19:02] LABS: Folate 8.7 ng/mL (> or = 4.0); Vitamin B12 532 pg/mL (200-900)
== END 2025-06-27 15:00 | disposition home or self-care (01) ==
LOC: HO.CHCLDS 14:59
PROVIDERS: Visit Provider Pediatrics
DX: R63.4 Abnormal weight loss (principal)
CPT/HCPCS: 36415; 82607; 82746; 85652; 86140

== ENCOUNTER 2025-10-02 07:26 | Outpatient (REF) | payer MEDICAID, SELFPAY ==
--- NOTE | ~2025-10-02 | XR_ITS ---
EXAMINATION: XR CHEST 2 VIEWS HISTORY: 19 y/o underweight COMPARISON: Comparison is made with the prior examination dated 05/09/2025. FINDINGS: PA and lateral views of the chest are submitted. The lungs are expanded and clear. There is no pleural effusion, pneumothorax, or pulmonary vascular congestion. The heart is normal in size. The bones are intact. XR/XR chest 2V IMPRESSION: No acute cardiopulmonary abnormality. Electronically signed by: Randal Moreno MD 10/02/2025 08:10 AM CHANG
--- NOTE | ~2025-10-02 | US_ITS ---
CLINICAL HISTORY: poor weigth les, increased bilirubin US abdomen complete Comparison: None provided Findings: The visualized pancreas is normal. The aorta and inferior vena cava are normal caliber. The liver is normal in size and echotexture. There is no intrahepatic bile duct dilatation. The common duct is 2 mm in diameter. The gallbladder is normal. There are no gallstones. There is no gallbladder wall thickening or pericholecystic fluid. The main portal vein is antegrade. The right kidney is 10.2 cm in length. 5 mm hyperechogenicity is seen in the right superior kidney. The left kidney is 9.8 cm in length. The spleen is normal. IMPRESSION: 1. 5 mm hyperechogenicity in the right superior kidney, which may represent a nonobstructive stone. This document has been electronically signed by: Shruthi Mae on 10/03/2025 09:04:46
--- OUTSIDE RECORDS SUMMARY | 2025-10-02 07:36 | XMS_ITS ---
Author Name [facility] Organization Unknown Encounters Encounter Type Encounter Reason Primary Diagnosis Location Date Ambulatory [facility] Care Team Organization Name Specialty Phone Email Start Date End Da te [facility] [address]
--- OUTSIDE RECORDS SUMMARY | 2025-10-02 07:36 | XMS_ITS | Clinical Summary ---
Author Organization [employer] Address [address] [place] [address] 7[address] [place] [address] Care Team Providers Care Ruby On Rails Consultant Name Role Phone Carmelita Lanza MD Primary Care Provider [phone] Allergies No known active allergies Medications * This document contains information received from the source organization and may not represent a complete record from that organization. Sod Fluoride-Potass ium Nitrate 1.1-5 % paste Please use pea size to brush your teeth twice daily. Spit after brushing. Do not rinse. 112 g 1 01/18/20 24 Active Multiple Vitamins-Calciu m (Essential One Daily Multivit) tablet Take 1 tab orally daily 90 tablet 3 12/11/19 25 Active ibuprofen 600 MG tablet Take 1 tablet (600 mg) by mouth every 6 (six) hours if needed for mild pain for up to 20 doses. 20 tablet 03/06/20 25 Active emtricitabine-t enofovir DF (Truvada) 200-300 MG tabletIndicatio ns:On pre-exposure prophylaxis for HIV Take 1 tablet by mouth Once per day. 30 tablet 11 04/15/20 25 026 Active ARIPiprazole (Abilify) 2 MG tablet TOME 1 TABLETA POR V A ORAL TODOS LOS D 08/15/20 25 Active hydrOXYzine HCl (Atarax) 10 MG tablet TOME 1 TABLETA POR V A ORAL JOSE VECES AL D A CUANDO SEA NECESARIO 08/15/20 25 Active mirtazapine (Remeron) 7.5 MG tablet TOME 1 TABLETA POR V A ORAL TODOS LOS D 08/15/20 25 Active traZODone (Desyrel) 50 MG tablet TOME 1 TABLETA POR V A ORAL TODOS LOS D POR LA N[place]HE 08/21/20 25 Active Nutritional Supplements (Boost High Protein) liquidIndicatio ns:Excessive weight loss Take 1 Can by mouth 2 times daily. 5688 mL 10/01/20 25 Active cyproheptadine (Periactin) 4 MG tablet Take 1 tablet (4 mg) by mouth at bedtime. 30 tablet 2 06/27/20 25 025 Nutritional Supplements (Boost High Protein) liquidIndicatio ns:Excessive weight loss DRINK ONE BOTTLE TWICE DAILY 5688 mL 07/26/20 25 025 Discontinued Nutritional Supplements (Boost High Protein) liquidIndicatio ns:Excessive weight loss DRINK ONE BOTTLE TWICE DAILY 5688 mL 10/01/20 25 025 Discontinued(Re order (will not trigger notification to Pharmacy)) Active Problems Problem Noted Date Diagnosed Date [...] Rashida is engaged in MH services with [facility] for individual therapy. Discussed psychopharmacology referral within [facility]. Allergy 04/04/2023 Assessment & Plan (04/04/2023 4:40 PM EDT): Eyes and runny nose. Will try zyrtec and alaway Disruptive mood dysregulation disorder 8 Excessive weight loss 03/27/2012 Insomnia 03/27/2012 Mental health problem 03/27/2012 Encounters Date Type Department Care Team Description 10/01/2025 Refill [facility] [address] [place] [address] Carmelita Lanza MD Excessive weight loss 09/30/2025 Refill [facility] [address] [place] [address] Carmelita Lanza MD Excessive weight loss 08/27/2025 9:45 AM EST Office Visit [facility] [address] [place] [address] Carmelita Lanza MD Excessive weight loss (Primary Dx); Increased bilirubin level; Encounter for immunization; Disruptive mood dysregulation disorder (CMS/HCC) 08/27/2025 Travel 08/26/2025 Telephone [facility] [address] [place] [address] Carmelita Lanza MD Appointment 08/26/2025 Telephone [facility] [address] [place] [address] Carmelita Lanza MD Chart Prep 08/19/2025 Telephone [facility] [address] [place] [address] Carmelita Lanza MD Chart Prep 08/02/2025 Orders Only [facility] [address] [place], [place] [phone] Berenice Grullon RN 07/25/2025 Refill [facility] [address] [place] [address] Carmelita Lanza MD Excessive weight loss from Last 3 Months Immunizations Immunization Administration Dates Next Due DTaP 06/08/2010, 7,06/23/2006,03/28,2005 HPV 9-Valent 02/01/2019,10/03/2017 Hep A, ped/adol, 2 dose 11/14/2013,12/23/2006 Hep B, Adolescent or Pediatric 06/23/2006,2005,2005 Hib (HbOC) 06/23/2009, 7,03/28/2006,12/24 IPV 06/08/2010, 6,03/28/2006,12/24 Influenza injectable quadriv alent preservative free 01/11/2022,11/06/2019,07/31/2019,10/03 Influenza live intranasal qu adrivalent LIAV4 09/12/2014 Influenza, Split (incl. shawna fied surface antigen) 11/14/2013 Influenza, seasonal, injecta ble, preservative free 08/27/2025,12/11/2024 MMR 06/08/2010,12/23/2006 Meningococcal MCV4P ACYW-135 01/11/2022,10/03/20 17 [...] Sign Reading Time Taken Comments Blood Pressure 90/62 08/27/2025 9:48 AM EST Pulse 72 08/27/2025 9:48 AM EST Temperature 36.6 C (97.8 F) 08/27/2025 9:48 AM EST Respiratory Rate 16 08/27/2025 9:48 AM EST Oxygen Saturation 98% 06/27/2025 2:18 PM EDT Inhaled Oxygen Concentration - - Weight 44.5 kg (98 lb) 08/27/2025 9:48 AM EST Height 165.1 cm (5' 5 ) 06/27/2025 2:18 PM EDT Body Mass Index 16.31 06/27/2025 2:18 PM EDT Plan of Treatment Upcoming Encounters Date Type Department Care Team (Late st Contact Info) Description 10/29/2025 9:00 AM EST Office Visit [facility] [address] [place] [address] Carmelita Lanza MD [address] [place] [phone] Health Maintenance Due Date Last Done Comments [...] COVID-19 Vaccine ( season) 2025 04/07/2021, 03/17/2021 Alcohol/Substance Use Screening 12/11/2025 12/11/2024 Depression Screening 12/11/2025 12/11/2024, 12/11/19 25 Disability Screening 12/11/2025 12/11/2024 SDOH Screening 12/11/2025 12/11/2024 Chlamydia and Gonorrhea Screening 07/26/2026 07/26/2025, 07/26/2025, 07/26/2025, Additional history exists Tobacco Screening 08/27/2026 08/27/2025 Dental X-Ray: Full Mouth 12/28/2027 025, 01/03/2024, [...] Vaccine Completed 01/11/2022, 017 HIV Screening Completed 07/26/2025, 03/24, 12/11/2024, Additional history exists Hepatitis C Screening Completed 07/26/2025 , 04/09/2025, 12/11/2024 Influenza Vaccine Completed 08/27/2025, , 01/11/2022, Additional history exists RSV under 20 months Aged Out No longe r eligible based on patient's age to complete this topic Rotavirus Vaccines Aged Out No longer eligible based on patient's age to complete this topic Procedures Procedure Name Priority Date/Time Associated Diagnosis Comments HIV ANTIBODY/ANTIGEN ([place] [facility]) Routine 07/26/2025 HEPATITIS C ANTIBODY ([place] [facility]) Routine 07/26/2025 SYPHILIS ABS ([place] [facility]) Routine 07/26/2025 CHLAMYDIA/GONORRHEA THROAT SWAB ([place] [facility]) Routine 07/26/2025 CHLAMYDIA/GONORRHEA VAGINAL SWAB ([place] [facility]) Routine 07/26/2025 CHLAMYDIA/GONORRHEA RECTAL SWAB ([place] [facility]) Routine 07/26/2025 PANORAMIC RADIOGRAPHIC IMAGE Routine 12/26/2024 8:00 AM [...] Recently Relevant to Health Maintenance Results * Chlamydia/Gonorrhea Vaginal Swab ([place] [facility]) (07/26/2025) Chlamydia Vaginal Swab Negative Negative, Indeterminate, None Detected, Invalid, Specimen unsatisfactory for evaluation, Weakly Positive, 2+ Gonorrhea Vaginal Swab Negative Negative, Indeterminate, None Detected, Invalid, Specimen unsatisfactory for evaluation, Weakly Positive, 2+ Swab Vaginal structure / Unknown 07/26/2025 [facility] Provider LAB MICROBIOLOGY - GENERA L ORDERABLES Final Result * Chlamydia/Gonorrhea, Rectal Swab ([place] [facility]) (07/26/2025) Chlamydia Rectal Swab Negative Negative, Indeterminate, None Detected, Invalid, Specimen unsatisfactory for evaluation, 2+ Gonorrhea Rectal Swab Negative Negative, Indeterminate, None Detected, Invalid, Specimen unsatisfactory for evaluation, 2+ Swab 07/26/2025 [facility] Provider LAB MICROBIOLOGY - GENERA L ORDERABLES Final Result * Chlamydia/Gonorrhea Throat Swab ([place] [facility]) (07/26/2025) Chlamydia Throat Swab Negative Gonorrhea Throat Swab Negative Swab 07/26/2025 [facility] Provider LAB MICROBIOLOGY - GENERA L ORDERABLES Final Result * Syphilis Antibodies (DPH) (07/26/2025) Syphilis Abs Nonreactive Borderline, Nonreactive, Weakly Reactive, Inconclusive, Specimen unsatisfactory for evaluation Blood Venous blood specimen / Unknown 07/26/2025 us Historical Provider LAB BLOOD ORDERABLES Michela l Result * Hepatitis C Antibody ([facility]) (07/26/2025) Hepatitis C Ab Nonreactive Blood 07/26/2025 us Historical Provider LAB BLOOD ORDERABLES Michela l Result * HIV Ab/Ag ([facility]) (07/26/2025) HIV Ag/Ab Nonreactive Blood 07/26/2025 Historical Provider LAB BLOOD ORDERABLES Michela l Result from Last 3 Months [facility] * Guarantor: Yousif Espinosa Account Type Relation to Patient Date of Phone Billing Address Personal/Family Mother [address] [facility] [id number] [place] [id number] [employer] C[facility] MEDICAID STAND ADULT Care Teams Ruby On Rails Consultant Relationship Specialty Start Date End Date Carmelita Lanza MD [address] [place] [id number] PCP - General Internal Medicine 12/20/23 Viv Gunderson Remote Sensing AnalystMetal Furniture Polisher 10/11/24
--- OUTSIDE RECORDS SUMMARY | 2025-10-02 07:36 | XMS_ITS | Encounter Summary ---
Author Organization [employer] Address [address] [place] [address] 7t [place] [address] Care Team Providers Care Car Audio Installer Name Role Phone Carmelita Lanza MD Primary Care Provider [phone] Reason for Visit * Reason Onset Date Comments rs cancelled appt 02/20/2025 Encounter Details Date Type Department Care Team ([facility] st Contact Info) Description 02/20/2025 Telephone [facility] [address] [place], [place] [phone] Giovanni Sun [address] [place] [address] rs cancelled appt Social History Tobacco Use [...] Description 10/29/2025 9:00 AM EST Office Visit [facility] [address] [place] [address] Carmelita Lanza MD [address] [place] [address] documented as of this encounter Visit Diagnoses Not on filedocumented in this encounter Additional Health Concerns Assessment Noted Time PHQ-9 Depression Total Score: 6 12/11/19 25 9:21 AM EST documented as of this encounter Care Teams Car Audio Installer Relationship Specialty Start Date End Date Carmelita Lanza MD [address] [place] [address] PCP - General Internal Medicine 12/20/23 Viv Gunderson Lean ManagerPouring Crane Operator 10/11/24 documented as of this encounter
--- OUTSIDE RECORDS SUMMARY | 2025-10-02 07:36 | XMS_ITS | Encounter Summary ---
Author Organization [employer] Address [address] [place] [address] 7 [place] [address] Care Team Providers Care Salvage Engineering Technician Name Role Phone Carmelita Lanza MD Primary Care Provider [phone] Reason for Visit * Reason Onset Date Comments Med Refill 10/01/2025 Encounter Details Date Type Department Care Team ([facility] st Contact Info) Description 10/01/2025 Refill [facility] [address] [place] [address] Carmelita Lanza MD [address] [place] [address] Excessive weight loss Social History Tobacco Use Types Packs/Day Years [...] Office Visit [facility] [address] [place] [address] Carmelita Lanza MD [address] [place] [address] documented as of this encounter Visit Diagnoses Diagnosis Excessive weight loss documented in this encounter Additional Health Concerns Assessment Noted Time PHQ-9 Depression Total Score: 6 12/11/19 25 9:21 AM EST documented as of this encounter Care Teams Salvage Engineering Technician Relationship Specialty Start Date End Date Carmelita Lanza MD [address] [place] [address] PCP - General Internal Medicine 12/20/23 Viv Gunderson Child PsychologistStep Down Specialist 10/11/24 documented as of this encounter
--- OUTSIDE RECORDS SUMMARY | 2025-10-02 07:37 | XMS_ITS | Encounter Summary ---
Author Organization [employer] Address [address] [place] [address] [address] [place] [address] Care Team Providers Care Business Administration Professor Name Role Phone Carmelita Lanza MD Primary Care Provider [phone] Reason for Visit * Reason Comments Med Refill Encounter Details Date Type Department Care Team ([facility] st Contact Info) Description 09/30/2025 Refill [facility] [address] [place], [place] [phone] Carmelita Lanza MD [address] [place] [address] Excessive weight loss Social History Tobacco Use [...] Upcoming Encounters Date Type Department Care Team ([facility] st Contact Info) Description 10/29/2025 9:00 AM EST Office Visit [facility] [address] [place] [address] Carmelita Lanza MD [address] [place] [address] documented as of this encounter Visit Diagnoses Diagnosis Excessive weight loss documented in this encounter Additional Health Concerns Assessment Noted Time PHQ-9 Depression Total Score: 6 12/11/19 25 9:21 AM EST documented as of this encounter Care Teams Business Administration Professor Relationship Specialty Start Date End Date Carmelita Lanza MD [address] [place] [address] PCP - General Internal Medicine 12/20/23 Viv Gunderson Hotel Maintenance TechnicianPlate Setter 10/11/24 documented as of this encounter
--- OUTSIDE RECORDS SUMMARY | 2025-10-02 07:37 | XMS_ITS | Encounter Summary ---
Author Organization [employer] Address [address] [place] [address] [address] [place] [address] Care Team Providers Care Services Manager Name Role Phone Carmelita Lanza MD Primary Care Provider [phone] Reason for Visit * Reason Onset Date Comments cx appt no insurance 01/22/2025 Encounter Details Date Type Department Care Team ([facility] st Contact Info) Description 01/22/2025 Telephone [facility] [address] [place], [place] [phone] Giovanni Sun [address] [place] [address] cx appt no insurance Social History Tobacco [...] Brunner - 01/22/2025 12:11 PM EDT Patient [facility] is inactive. Patient was offered to speak with Chrissie however patient was on the way to [employer] an opted to speak with MH office directly. Patiet informed to contact office when MH insurance is squared away for rescheduling pending availability DR documented in this encounter Plan of Treatment Upcoming Encounters Date Type Department Care Team ([facility] st Contact Info) Description 10/29/2025 9:00 AM EST Office Visit [facility] [address] [place] [address] Carmelita Lanza MD [address] [place] [address] documented as of this encounter Visit Diagnoses Not on filedocumented in this encounter Additional Health Concerns Assessment Noted Time PHQ-9 Depression Total Score: 6 12/11/19 25 9:21 AM EST documented as of this encounter Care Teams Services Manager Relationship Specialty Start Date End Date Carmelita Lanza MD [address] [place] [id number] PCP - General Internal Medicine 12/20/23 Viv Gunderson Rigger ApprenticeLeather Scraper 10/11/24 documented as of this encounter
== END 2025-10-02 07:27 | disposition home or self-care (01) ==
LOC: HO.US 07:26
PROVIDERS: PCP Pediatrics; Visit Provider Pediatrics
DX: R63.4 Abnormal weight loss (principal); R17 Unspecified jaundice
CPT/HCPCS: 71046; 76700

== ENCOUNTER → 2025-10-02 07:29 | Outpatient (BNV) | payer MEDICAID, SELFPAY | PROVIDERS: PCP Pediatrics; Visit Provider Radiology Diagnostic Radiology | DX: R63.6 Underweight (principal) | CPT/HCPCS: 71046; 76700 ==